=== PATIENT | female | born 1970 | race Caucasian/White ===

== ENCOUNTER 2020-03-10 08:02 | Outpatient (CLI) | payer BC, SELFPAY ==
--- NOTE | ~2020-03-10 | MM_ITS ---
EXAMINATION: MM screening idalmis BI w kye HISTORY: Screening mammogram, family history of breast cancer in her mother. TECHNIQUE: Craniocaudal and mediolateral oblique 3-D tomosynthesis images were obtained and synthetic 2-D images were generated. CAD analysis was submitted and interpreted. COMPARISON: 03/06/2019, 03/03/2018, 03/01/2017 BREAST PARENCHYMAL COMPOSITION: There are scattered areas of fibroglandular density. FINDINGS: Scattered benign-appearing calcifications are present. There is no evidence of suspicious m ass, calcification, or architectural distortion to suggest malignancy in either breast. There has bee n no suspicious interval change. IMPRESSION: 1. No mammographic evidence of malignancy. 2. Recommend routine screening mammography in one year. BI-RADS Category 2: Benign finding(s). Reviewed, dictated and finalized at location A.
== END 2020-03-10 08:03 | disposition home or self-care (01) ==
PROVIDERS: PCP Internal Medicine; Visit Provider Internal Medicine
DX: Z12.31 Encounter for screening mammogram for malignant neoplasm of breast (principal)
CPT/HCPCS: 77063; 77067

== ENCOUNTER 2021-03-17 08:22 | Outpatient (CLI) | payer BC, SELFPAY ==
--- NOTE | ~2021-03-17 | MM_ITS ---
EXAMINATION: MM screening idalmis BI w kye HISTORY: Screening mammogram, family history of breast cancer in her mother. TECHNIQUE: Craniocaudal and mediolateral oblique 3-D tomosynthesis images were obtained and synthetic 2-D images were generated. CAD analysis was submitted and interpreted. COMPARISON: 03/10/2020, 03/06/2019, 03/03/2018 BREAST PARENCHYMAL COMPOSITION: There are scattered areas of fibroglandular density. FINDINGS: There is no evidence of suspicious mass, calcification, or architectural distortion to sugg est malignancy in either breast. There has been no suspicious interval change. IMPRESSION: 1. No mammographic evidence of malignancy. 2. Recommend routine screening mammography in one year. BI-RADS Category 1: Negative Reviewed, dictated and finalized at location A.
== END 2021-03-17 08:23 | disposition home or self-care (01) ==
PROVIDERS: PCP Internal Medicine
DX: Z12.31 Encounter for screening mammogram for malignant neoplasm of breast (principal)
CPT/HCPCS: 77063; 77067

== ENCOUNTER 2021-11-13 10:43 | Outpatient (CLI) | payer BC, SELFPAY ==
--- NOTE | ~2021-11-13 | CT_ITS ---
EXAMINATION: CT abdomen pelvis w con EXAM DATE: 11/13/2021 11:30 INDICATION: Acute diffuse abdominal pain for 3 weeks, lack of appetite. TECHNIQUE: Spiral CT of the abdomen and pelvis was performed following intravenous injection of 100 m L Omnipaque 350. Axial, coronal and sagittal images of the abdomen and pelvis were reviewed. The do se-length product (DLP) for this examination was 245.57 mGy-cm. The exposure was tailored according to patient size (auto mA exposure control), and iterative reconstruction (ASIR) was used as additiona l dose reduction technique. Comparison is made to prior examination from 05/31/2017. FINDINGS: The liver, spleen, adrenal glands and pancreas are unremarkable. Gallbladder is unremarkab le. No biliary obstruction. Portal and splenic veins are patent. Kidneys enhance symmetrically. T here is no hydronephrosis. The uterus is unremarkable. The bladder is unremarkable. There is no retroperitoneal or pelvic lymphadenopathy. Small umbilical fat-containing hernia. There are no findings to suggest appendicitis. There is a rectosigmoid anastomosis site. The stomach and small bowel are unremarkable. There is expected amount of colonic stool. No free intraperitone al gas. The heart is normal in size. There are no pericardial or pleural effusions. The lung base s are unremarkable. There are no osteoblastic or osteolytic lesions identified. IMPRESSION: 1. No acute intra-abdominal findings. Reviewed, dictated and finalized at location A. ING ALLEY REFINISHER
[2021-11-13 10:55] LABS: Basophils Absolute Auto 0.05 K/mm3 (0.00-0.10); Basophils Percent Auto 0.7 % (0.0-1.0); Eosinophils Absolute Auto 0.05 K/mm3 (0.02-0.50); Eosinophils Percent Auto 0.7 % (1.0-6.0); Hematocrit 42.4 % (35.0-49.0); Hemoglobin 14.3 g/dL (12.0-15.0); Immature Granulocyte Absolute 0.02 K/mm3 (0.00-0.00); Immature Granulocyte Percent A 0.3 % (0.0-0.0); Lymphocytes Absolute Auto 1.43 K/mm3 (1.10-4.50); Lymphocytes Percent Auto 20.8 % (18.0-42.0); Mean Corpuscular HGB Conc 33.7 g/dL (32.0-36.0); Mean Corpuscular Hemoglobin 31.4 pg (27.0-31.0); Mean Platelet Volume 9.8 fl (9.2-11.8); Monocytes Absolute Auto 0.33 K/mm3 (0.10-0.90); Monocytes Percent Auto 4.8 % (2.0-11.0); Neutrophils Percent Auto 72.7 % (50.0-70.0); Platelet Count Result 226 K/mm3 (150-420); Red Blood Count 4.56 M/mm3 (4.20-5.40); Red Cell Distribution Width 12.8 % (11.6-14.4); White Blood Count 6.9 K/mm3 (4.8-10.8)
[2021-11-13 11:01] LABS: Add Urine Microscopic? YES; Appearance Urine Clear (Clear); Bilirubin Urine Negative (Negative); Blood Urine 3+ (Negative); Color Urine Yellow (Yellow); Glucose Urine UA Negative (Negative); Ketones Urine 1+ (Negative); Leukocyte Esterase Ur Trace (Negative); Nitrate Urine Negative (Negative); Protein Urine Negative (Negative); Specific Grav Ur <= 1.005 (1.010-1.020); Urobilinogen Urine 0.2 mg/dL (0.2-1.0)
[2021-11-13 11:08] LABS: Bacteria Urine Trace /hpf; Squamous Epithelial Cell Urine Few /hpf (Few); WBC Urine 0-3 /hpf (0-3)
[2021-11-13 11:12] LABS: Alanine Aminotransferase 20 U/L (14-59); Albumin Level 4.1 g/dL (3.4-5.0); Alkaline Phosphatase 56 U/L (46-116); Anion Gap 11 mmol/L (8-16); Aspartate Amino Transferase 14 U/L (15-37); Bilirubin,Total 0.5 mg/dL (0.00-1.00); Blood Urea Nitrogen 12 mg/dL (7-18); Calcium 9.7 mg/dL (8.5-10.1); Carbon Dioxide 27 mmol/L (21-32); Chloride 101 mmol/L (98-108); Estimated Glomerular Filt Rate > 60; Glucose 102 mg/dL (70-99); Osmolality Calculated 287 mOsm/kg (285-295); Sodium 139 mmol/L (136-145); Total Protein 7.3 g/dL (6.4-8.2)
== END 2021-11-13 10:44 | disposition home or self-care (01) ==
PROVIDERS: PCP Internal Medicine; Visit Provider Internal Medicine
DX: R10.9 Unspecified abdominal pain (principal); R31.9 Hematuria, unspecified
CPT/HCPCS: 36415; 74177; 80053; 81001; 85025; 87086; 87088; Q9967

== ENCOUNTER 2022-03-19 08:17 | Outpatient (CLI) | payer BC, SELFPAY ==
--- NOTE | ~2022-03-19 | MM_ITS ---
EXAMINATION: MM screening idalmis BI w kye HISTORY: Screening mammogram, family history of breast cancer in her mother. TECHNIQUE: Craniocaudal and mediolateral oblique 3-D tomosynthesis images were obtained and synthetic 2-D images were generated. CAD analysis was submitted and interpreted. COMPARISON: 03/17/2021, 03/10/2020, 03/06/2019 BREAST PARENCHYMAL COMPOSITION: There are scattered areas of fibroglandular density. FINDINGS: Scattered benign-appearing calcifications are present. There is no suspicious mass, calcifi cation, or architectural distortion to suggest malignancy in either breast. There has been no suspici ous interval change. IMPRESSION: 1. No mammographic evidence of malignancy. 2. Recommend routine screening mammography in one year. BI-RADS Category 2: Benign finding(s). Reviewed, dictated and finalized at location A.
== END 2022-03-19 08:18 | disposition home or self-care (01) ==
LOC: CHSIMG 08:19
PROVIDERS: PCP Internal Medicine
DX: Z12.31 Encounter for screening mammogram for malignant neoplasm of breast (principal)
CPT/HCPCS: 77063; 77067

== ENCOUNTER 2022-11-25 07:26 | Outpatient (CLI) | payer BC, SELFPAY ==
[2022-11-25 07:58] LABS: Appearance Urine Slightly Cloudy (Clear); Bilirubin Urine Negative (Negative); Blood Urine Negative (Negative); Color Urine Light Yellow (Yellow); Glucose Urine UA Negative (Negative); Hematocrit 39.5 % (35.0-49.0); Hemoglobin 13.5 g/dL (12.0-15.0); Ketones Urine Negative (Negative); Leukocyte Esterase Ur 3+ (Negative); Mean Corpuscular HGB Conc 34.2 g/dL (32.0-36.0); Mean Corpuscular Hemoglobin 31.1 pg (27.0-31.0); Mean Platelet Volume 9.6 fl (9.2-11.8); Nitrate Urine Negative (Negative); Platelet Count Result 238 K/mm3 (150-420); Protein Urine Negative (Negative); Red Blood Count 4.34 M/mm3 (4.20-5.40); Red Cell Distribution Width 12.8 % (11.6-14.4); Urobilinogen Urine 0.2 mg/dL (0.2-1.0); White Blood Count 5.2 K/mm3 (4.8-10.8); pH Urine 7.5 (5.0-8.0)
[2022-11-25 08:12] LABS: Add Urine Microscopic? YES; Bacteria Urine 2+ /hpf; RBC Urine None seen /hpf (0-2); Squamous Epithelial Cell Urine Many /hpf (Few)
[2022-11-25 08:13] LABS: Band Neutrophils Percent 0 % (0-6); Eosinophils Absolute Manual 0.05 K/mm3 (0.02-0.5); Eosinophils Percent Manual 1 % (1-6); Lymphocytes Absolute Manual 2.49 K/mm3 (1.1-4.5); Lymphocytes Percent Manual 48 % (18-44); Monocytes Absolute Manual 0.26 K/mm3 (0.1-0.90); Monocytes Percent Manual 5 % (3-9); Neutrophils Absolute Manual 2.39 K/mm3 (1.7-7.2); Neutrophils Percent Manual 46 % (46-73); Platelet Estimate Adequate (Adequate); Total Cells Counted 100
[2022-11-25 08:24] LABS: Alanine Aminotransferase 22 U/L (14-59); Albumin Level 3.7 g/dL (3.4-5.0); Alkaline Phosphatase 54 U/L (46-116); Anion Gap 6 mmol/L (8-16); Aspartate Amino Transferase 15 U/L (15-37); Bilirubin,Total 0.6 mg/dL (0.00-1.00); Blood Urea Nitrogen 15 mg/dL (7-18); Carbon Dioxide 29 mmol/L (21-32); Chloride 105 mmol/L (98-108); Cholesterol 197 mg/dL (0-200); Estimated Glomerular Filt Rate > 60; Free T4 Free Thyroxine 0.89 ng/dL (0.76-1.46); Glucose 93 mg/dL (70-99); HDL Direct 82 mg/dL (40-60); LDL Cholesterol Calculated 103 mg/dL (<130); Osmolality Calculated 290 mOsm/kg (285-295); Potassium 4.6 mmol/L (3.5-5.1); Sodium 140 mmol/L (136-145); Total Protein 6.8 g/dL (6.4-8.2); Triglycerides 58 mg/dL (0-150)
[2022-11-28 19:32] LABS: Vitamin D 25 Hydroxy 40 ng/mL (30-100)
== END 2022-11-25 07:27 | disposition home or self-care (01) ==
LOC: CHSLAB 07:28
PROVIDERS: PCP Internal Medicine; Visit Provider Internal Medicine
DX: Z00.00 Encounter for general adult medical examination without abnormal findings (principal)
CPT/HCPCS: 36415; 80053; 80061; 81001; 82306; 84439; 84443; 85025; 87077; 87086; 87088

== ENCOUNTER 2025-07-09 16:21 | Outpatient (CLI) | payer OTHER, SELFPAY ==
--- OUTSIDE RECORDS SUMMARY | 2025-01-17 09:00 | XMS_ITS ---
Author Organization [facility] Address [address] [place], [place] [id number] Care Team Providers Care Live Ammunition Inspector Name Role Phone FARMER, YOSEPH Unavailable [phone] Chitra Landry Unavailable Unavailable Allergies No Known Allergies REASON FOR VISIT Plantar fasciitis Medications Medication SIG (Take, Route, Frequency, Duration) Notes Start Date End Date Status nabumetone 500 MG Oral Tablet [Relafen] ORAL nabumetone 500 MG Oral Tablet [Relafen]Original Medicationnabumetone 500 MG Oral Tablet [Relafen] *Reorder from [employer] for eRx and Interaction Alerts* 04/12/2014 Active Social History Social History Additional Details Category Social Info Options Details Migrated Social History Migrated Social History Smoking Status : Never smoked , History of tobacco use : , Alcohol intake : Vital Signs Height 62.00 in 01/17/2025 Weight 140 lbs 01/17/2025 BMI 25.6 kg/m2 01/17/2025 Height-cm 157.48 cm 01/17/2025 Weight-kg 63.5 kg 01/17/2025 Encounters Encounter Location Date Provider Diagnosis [address] [id number] 01/17/2025 YOSEPH FARMER Plantar fascial 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 ; Pain in left foot M79.672 and Left foot pain M79.672 Assessments Encounter Date Diagnosis (ICD Code) Assessment Notes Treatment Notes Treatment Clinical Notes Section Notes 01/17/2025 Plantar fascial fibromatosis (ICD-10 - M72.2) Heel Pain: I discussed anti-inflammato ry treatment options and various means of pronation control with the patient. I educated the patient on icing and stretching, supportive shoegear, and the use of orthotic devices. 01/17/2025 Pain in left foot (ICD-10 - M79.672) Patient was instructed to try an OTC topical pain reliever/anti-i nflammatory such as Voltaren Gel, Aspercreme with Lidocaine, or Biofreeze etc over the affected areas. Spot test on hand or somewhere visible prior to starting to watch for possible rash/allergic reaction 01/17/2025 Left foot pain (ICD-10 - M79.672) The patient was scanned for custom orthotics while held in subtalar joint neutral position Plan Of Treatment Treatment Notes Assessment Notes Plantar fascial fibromatosis Heel Pain: I discussed anti-inflammatory treatment options and various means of pronation control with the patient. I educated the patient on icing and stretching, supportive shoegear, and the use of orthotic devices. Pain in left foot Patient was instruct ed to try an OTC topical pain reliever/anti-inflammatory such as Voltaren Gel, Aspercreme with Lidocaine, or Biofreeze etc over the affected areas. 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 Patient states that she has custom orthotics, but they are about 14 years old. She states that the felt great but might be wearing down now. , MA: [facility] Examination Category Sub-Category Detail Notes Category Not es Constitutional Constitutional The patient is a wake, alert, well developed, well groomed and well nourished. Dermatologic Skin findings: bilateral, Skin is warm, dry, supple with no breaks in the skin. Musculoskeletal Muscle Strength Muscle strength is 5/5 in regards to dorsiflexion, plantarflexion, inversion, and eversion in bilateral lower extremities. Pain on palpation There is no pain on palpation of achilles tendons bilat. Plantar Fascia There is pain on pal pation to the medial band of the left plantar fascia, near its attachment to the calcaneus Neurologic Gross sensation Gross sensation is intact to light touch. Vascular Dorsalis pedis pulse: bilateral, 2/4 Posterior tibial pulse: bilaterally, 2/4 Capillary refill: bilaterally, less th an 3 seconds Progress Notes * MEHRDAD CHEUNGDOB:1970 (54 yo F)Acc No.[id number]:01/17/2025 Progress Notes Patient: MEHRDAD MARTÍNEZ Provider: Claudio FARMER :1970 A ge:54 Y S ex:Female Date:01/17/2025 Address:[address] [place], [place] [address] [address] Subjective: * Chief Complaints: * P lantar fasciitis * HPI: H PI: New Complaint P atient was last seen in our practice over three years ago., Patient complains of an issue to left heel and top of the foot pain. Patient states that she has custom orthotics, but they are about 14 years old. She states that the felt great but might be wearing down now. , MA: [facility]. * ROS: G eneral / Constitutional: Patient denies c hills, fever, weakness. M usculoskeletal: Patient complains of h eel pain. P eripheral Vascular: Patient denies c old extremities, ulceration of feet. ? S kin: Patient denies u lcerations, keloid scar, discoloration.? N eurologic: Patient denies b alance difficulty, Numbness. ? * Medical History: Denies Past Medical History No Medical History Documented Medical History Verified * Surgical History: Denies Past Surgical History. Surgical History verified. * Hospitalization/Major Diagno stic Procedure: Denies Past Hospitalization. Hospitalization Verified. * Family History: F ather: PRN - Father: . M other: PRN - Mother: . S ister: SIB - Sister: . F amily History Verified.. * Social History: M igrated Social History: M igrated Social History: Smoking Status : Never smoked , History of tobacco use : , Alcohol intake :. Social History Verified. * Medications: T akingnabumetone 500 MG Oral Tablet [Relafen] ORAL , Notes to Pharmacist: nabumetone 500 MG Oral Tablet [Relafen]Original Medicationnabumetone 500 MG Oral Tablet [Relafen] *[facility] and Interaction Alert[facility]*Medication List reviewed and reconciled with the patientTaking nabumetone 500 MG Oral Tablet [Relafen] ORAL , Notes to Pharmacist: nabumetone 500 MG Oral Tablet [Relafen]Original Medicationnabumetone 500 MG Oral Tablet [Relafen] *[facility] and Interaction Alerts*Medication List reviewed and reconciled with the patient * Allergies: N .K.D.A.yesAllergies Verified. Objective: * Vitals: W t:140lbs, Wt-k.5 kg, Ht: 62.00 in, Ht-cm: 157.48 cm, BMI:25.6Index, Body Surface Area: 1.67. * Examination: C onstitutional: Constitutional T he patient is awake, alert, well developed, well groomed and well nourished.. D ermatologic: Skin findings: b ilateral, Skin is warm, dry, supple with no breaks in the skin.. M usculoskeletal: Muscle Strength M uscle strength is 5/5 in regards to dorsiflexion, plantarflexion, inversion, and eversion in bilateral lower extremities.. Pain on palpation T here is no pain on palpation of achilles tendons bilat.. Plantar Fascia T here is pain on palpation to the m edial band of the left plantar fascia, near its attachment to the calcaneus. N eurologic: Gross sensation G ross sensation is intact to light touch..? V ascular: Dorsalis pedis pulse: b ilateral, 2/4. Posterior tibial pulse: b ilaterally, 2/4. Capillary refill: b ilaterally, less than 3 seconds. ? Assessment: * Assessment: 1. P lantar fascial fibromatosis - M72.2 (Primary) 2 . P ain in left foot - M79.672 3 . L eft foot pain - M79.672 Plan: * Treatment: 2. P ain in left foot Notes: Patient was instructed to try an OTC topical pain reliever/anti-inflammatory such as Voltaren Gel, Aspercreme with Lidocaine, or Biofreeze etc over the affected areas. Spot test on hand or somewhere visible prior to starting to watch for possible rash/allergic reaction 3. L eft foot pain Notes: The patient was scanned for custom orthotics while held in subtalar joint neutral position? * Immunizations: Immunization record has been reviewed and updated. * Procedure Codes: L 3020 FT INSRT REMV MOLD LNGTUDNL SUPP EA, Modifiers: RT , HID1443 FT INSRT REMV MOLD LNGTUDNL SUPP EA, Modifiers: LT , GA * Follow Up: 3 Weeks (Reason: orthotic orange picker) Billing Information: * Visit Code: 45801 Office Visit, Est Pt., Level 3. * Procedure Codes: L3020 FT INSRT REMV MOLD LNGTUDNL SUPP EA. Modifiers: RT, GA L3020 FT INSRT REMV MOLD LNGTUDNL SUPP EA. Modifiers: LT, GA * Electronic signature of WILLIAMS FARMER DPM on 07/09/2025 at 04:57 PM MILK INSPECTOR Sign off status: Pending * Provider: Claudio FARMER Date: 0 01/17/2025 Generated for Randy valenzuela/Mauro/Zuri on: 1 09/08/2024 04:57 PM MILK INSPECTOR
--- OUTSIDE RECORDS SUMMARY | 2025-02-28 03:20 | XMS_ITS ---
Author Organization [facility] Address [address] [place], [place] [id number] Care Team Providers Care Paint Technician Name Role Phone MARLENY YOSEPH Unavailable [phone] Chitra Landry Unavailable Unavailable REASON FOR VISIT *Foot Pain Medications Medication SIG (Take, Route, Frequency, Duration) Notes Start Date End Date Status nabumetone 500 MG Oral Tablet [Relafen] ORAL nabumetone 500 MG Oral Tablet [Relafen]Original Medicationnabumetone 500 MG Oral Tablet [Relafen] *Reorder from [employer] for eRx and Interaction Alerts* 04/12/2014 Active Social History Social History Additional Details Category Social Info Options Details Migrated Social History Migrated Social History Smoking Status : Never smoked , History of tobacco use : , Alcohol intake : Vital Signs Height 62.00 in 02/28/2025 Weight 140 lbs 02/28/2025 BMI 25.6 kg/m2 02/28/2025 Height-cm 157.48 cm 02/28/2025 Weight-kg 63.5 kg 02/28/2025 Encounters Encounter Location Date Provider Diagnosis [facility] [address] [place], [place] [id number] 02/28/2025 YOSEPH FARMER Plantar fasciitis M72.2 ; Pain in right foot M79.671 and Left foot pain M79.672 Assessments Encounter Date Diagnosis (ICD Code) Assessment Notes Treatment Notes Treatment Clinical Notes Section Notes 02/28/2025 Plantar fasciitis (ICD-10 - M72.2) 02/28/2025 Pain in right foot (ICD-10 - M79.671) 02/28/2025 Left foot pain (ICD-10 - M79.672) Plan Of Treatment No Information History and Physical Notes * HPI (History of Present Illness) Category Sub-Category Detail Notes Category Not es HPI Follow Up Visit 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 Patient states that there have been no changes or new issues. 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 Patient states that there have been no changes or new issues. , MA: rex. * Family History: F ather: PRN - [...] 500 MG Oral Tablet [Relafen] *Reorder from [employer] for eRx and Interaction Alerts*Medication List reviewed and reconciled with the patientTaking nabumetone 500 MG Oral Tablet [Relafen] ORAL , Notes to Pharmacist: nabumetone 500 MG Oral Tablet [Relafen]Original Medicationnabumetone 500 MG Oral Tablet [Relafen] *Reorder from [employer] for eRx and Interaction Alerts*Medication List reviewed and reconciled with the patient Objective: * Vitals: W t:140lbs, Wt-k.5 kg, Ht: 62.00 in, Ht-cm: 157.48 cm, BMI:25.6Index, Body Surface Area: 1.67. Assessment: * Assessment: 1. P lantar fasciitis - M72.2 (Primary) 2 . P ain in right foot - M79.671? 3. L eft foot pain - M79.672 Plan: * Immunizations: Immunization record has been reviewed and updated. Billing Information: * Visit Code: 53381 Office Visit, Est Pt., Level 3. * Procedure Codes: * Electronic signature of WILLIAMS FARMER DPM on 07/09/2025 at 04:56 PM SOCIAL SERVICES ANALYST Sign off status: Pending * Provider: Claudio FARMER Date: 0 02/28/2025 Generated for Randy valenzuela/Mauro/Zuri on: 09/08/2024 04:56 PM SOCIAL SERVICES ANALYST
--- NOTE | ~2025-07-09 | CT_ITS ---
EXAMINATION: CT abdomen pelvis w con DATE: 07/09/2025 17:16 INDICATION: Diverticulitis. Blood in stool. Abdomen pain. TECHNIQUE: Computed tomography (CT) of the abdomen and pelvis was performed with 100 cc Omnipaque 350 intravenous contrast. The dose-length product was 414.43 mGy-cm. Automated exposure control and iterative reconstruction technique were employed. COMPARISON: CT dated 11/13/2021 FINDINGS: Lung bases unremarkable. Heart size normal. No significant pleural or pericardial effusion. Small fat-containing umbilical hernia. Fatty infiltration of the liver. Small subcentimeter hypodensities of the liver, most likely benign. The spleen, pancreas, adrenal glands and kidneys are unremarkable. No hydronephrosis. Gallbladder is present. There is a fat-containing infraumbilical hernia. There is an anastomosis of the rectosigmoid junction. Small amount of free fluid in the pelvis, likely physiologic. Mild peritoneal stranding in the left lower abdomen, nonspecific. IMPRESSION: 1. Umbilical and infraumbilical ventral hernias containing fat. 2: Mild nonspecific peritoneal stranding left lower abdomen, nonspecific. No findings to suggest diverticulitis. Reviewed, dictated and finalized at location O. OR FINANCIAL REPORTING ANALYST IMPRESSION: 1. Umbilical and infraumbilical ventral hernias containing fat. 2: Mild nonspecific peritoneal stranding left lower abdomen, nonspecific. No fi ndings to suggest diverticulitis.
--- OUTSIDE RECORDS SUMMARY | 2025-07-09 16:56 | XMS_ITS | Encounter Summary ---
Author Organization [facility] Address [address] [place] [address] Phone Care Team Providers Care Larry Car Operator Name Role Phone Chitra Landry MD Primary Care Provider + [phone] Encounter Details Date Type Department Care Team (Latest Contact Info) Description 03/10/2020 Orders Only [facility] Scanning, Provider Social History Tobacco Use Types Packs/Day Years Used Date Smoking Tobacco: Never Assessed Comments No Sex and Gender Information Value Date Recorded Sex Assigned at Not on file Legal 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 Gender Identity Not on file Sexual Orientation Not on file documented as of this encounter Plan of Treatment Not on file documented as of this encounter Procedures Procedure Name Priority Date/Time Associated Diagnosis Comments SCAN - RADIOLOGY/IMAGING 03/10/2020 documented in this encounter Results * SCAN - RADIOLOGY/IMAGING (03/10/2020) Anatomical Region Laterality Modality Other us Provider Scanning Final Result documented in this encounter Visit Diagnoses Not on filedocumented in this encounter Care Teams Larry Car Operator Relationship Specialty Start Date End Date Chitra Landry MD [address] [place] [address] PCP - General Internal Medicine 06/18/19 documented as of this encounter
--- OUTSIDE RECORDS SUMMARY | 2025-07-09 16:56 | XMS_ITS | Encounter Summary ---
Author Organization [facility] Address [address] [place] [address] Phone Care Team Providers Care Assembler Flexible Leads Name Role Phone Chitra Landry MD Primary Care Provider + [phone] Encounter Details Date Type Department Care Team (Late st Contact Info) Description 06/10/2025 Results Follow-Up [facility] Medicine Oncology [address] [place] [address] EloyKelly barrios MD [address] [place], [place] [id number] Screening Mammogram Bilateral W Berto Social History Tobacco Use Types Packs/Day Years Used Date Smoking Tobacco: Never AUDIT-C Answer Date Recorded Q1: How often do you have a drink containing alc ohol? 2-3 times a week 02/24/2021 Q2: How many drinks containi ng alcohol do you have on a typical day when you are drinking? 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
--- OUTSIDE RECORDS SUMMARY | 2025-07-09 16:57 | XMS_ITS | Encounter Summary ---
Author Organization 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 Gender Identity Not on file Sexual Orientation Not on file documented as of this encounter Plan of Treatment Not on file documented as of this encounter Procedures Procedure Name Priority Date/Time Associated Diagnosis Comments SCAN - RADIOLOGY/IMAGING 03/17/2021 documented in this encounter Results * SCAN - RADIOLOGY/IMAGING (03/17/2021) Anatomical Region Laterality Modality Other us Provider Scanning Final Result documented in this encounter Visit Diagnoses Not on filedocumented in this encounter Care Teams Diesel Trailer Mechanic Relationship Specialty Start Date End Date Chitra Landry MD [address] [place] [address] PCP - General Internal Medicine 06/18/19 documented as of this encounter
--- OUTSIDE RECORDS SUMMARY | 2025-07-09 16:57 | XMS_ITS | Clinical Summary ---
Author Organization [facility] Address [address] [place] [address] Care Team Providers Care Outreach Worker Name Role Phone Chitra Landry MD Primary Care Provider [phone] Allergies Active Allergy Reactions Criticality Noted Date Comments Metronidazole Nausea & Vomiting Low 02/09/2016 Medications zolpidem (AMBIEN) 10 mg tablet 12/08/2023 Active Active Problems Problem Noted Date Diagnosed Date At high risk for breast cancer 01/09/2025 Lung consolidation 12/28/2023 Breast cancer screening, high risk patient 12/15 Family history of breast cancer 09/16/2021 Encounter for screening mammogram for breast can cer 09/16/2021 Personal history of colonic polyps 12/05/2020 Overview (12/05/2020): Added automatically from request for surgery [id number] Resolved Problems Problem Noted Date Diagnosed Date Resolved Date Diverticulitis 12/16/2015 08/26/2020 Encounters Date Type Department Care Team Description 06/10/2025 4:16 PM CDT - 06/10/2025 11:59 PM CDT Hospital Encounter [facility] Medical Office Bldg 1 Breast [facility] [address] [place] [address] Screening mammogram, encounter for Discharge Disposition: Discharge to home or self care 06/10/2025 Results Follow-Up [facility] Oncology [address] [place] [address] EloyKelly MD Screening Mammogram Bilateral W Berto from Last 3 Months Immunizations Immunization Administration Dates Next Due Moderna SARS-CoV-2 Monovalen t Vaccination (12+ YRS) 08/14/2021,11/06/2020,09/20/2020 Surgical History Surgery Date Site/Laterality Comments SIGMOIDECTOMY 09/05/2016 - 09/04/2017 diverticulitis Family History Medical History Relation Name Comments Brain cancer Maternal Grandmother Leukemia Maternal Grandmother Breast cancer Mother contralateral cancer at 71, BRIP1 VUS breast cancer Mother's Sister LCIS Relation Name Status Comments Father Alive Maternal Grandmother Mother Alive Mother's Sister Social History Tobacco Use Types Packs/Day Years [...] on file Legal 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 Gender Identity Not on file Sexual Orientation Not on file Obstetrics History Para Term AB IAB SAB Ectopic Multiple Livin g Live Births 2 2 2 Date Outcome GA Total Labor Labor/2nd/3rd Weight Sex Type Anes PTL Kelin A1 A5 Name Clin Term Term Last Filed Vital Signs Vital Sign Reading Time Taken Comments Blood Pressure 137/79 01/09/2025 9:37 AM CDT Pulse 55 01/09/2025 9:37 AM CDT Temperature 36.7 C (98 F) 01/09/2025 9:37 AM CDT Respiratory Rate 16 01/09/2025 9:37 AM CDT Oxygen Saturation 98% 01/09/2025 9:37 AM CDT Inhaled Oxygen Concentration - - Weight 77.6 kg (171 lb 1.2 oz) 06/10/2025 4:26 P M CDT Height 158 cm (5' 2.21) 06/10/2025 4:26 PM CDT Body Mass Index 31.08 06/10/2025 4:26 PM CDT Plan of Treatment Health Maintenance Due Date Last Done Comments Cervical Cancer Screening 1972 Depression Screening 1972 Hepatitis C Screening 1972 DTaP/Tdap/Td Vaccine (1 - Tdap) 1983 Hepatitis B Screening 1990 Regular Well Visit/Exam 18-64 1990 Zoster Vaccine (1 of 2) 2022 Covid-19 Vaccine (4 - 2024- season) 2025 08/14/2021, 11/06/2020, 09/20/2020 Influenza Vaccine (#1) 2025 Breast Cancer Screening-Mammogram 06/10/2026 06/10/2025, 06/04/2024, 03/24/2023, Additional history exists Colon Cancer Screening-Colonoscopy 02/24/2031 02/24/2021, 12/16/2015 Pneumococcal vaccine <65 Aged Out No longer eligible based on patient's age to complete this topic Procedures Procedure Name Priority Date/Time Associated Diagnosis Comments SCREENING MAMMOGRAM BILATERAL W BERTO Schedule Routine, Read Routine (OP Routine) 06/10/2025 4:26 PM CDT Screening mammogram, encounter for COLONOSCOPY 02/24/2021 10:17 AM CDT from Last 3 Months or Most Recently Relevant to Health Maintenance Results * Screening Mammogram Bilateral W Berto (06/10/2025 4:26 PM CDT) Anatomical Region Laterality Modality Breast Bilateral Mammography Impressions 06/10/2025 4:47 PM CDT Bilateral No evidence of malignancy in either breast. OVERALL BI-RADS FINAL ASSESSMENT: 1 - Negative RECOMMENDATION: Recommend bilateral annual screening mammography. Narrative 06/10/2025 4:47 PM CDT EXAMINATION: Screening Mammogram Bilateral W Berto: 06/10/2025 COMPARISON: Relevant prior studies available at the time of interpretation were reviewed, including the most recent mammogram on: 06/04/2024. TECHNIQUE: Mammography was performed with 2D and 3D digital breast tomosynthesis (DBT) images. CAD was utilized. BREAST PARENCHYMAL COMPOSITION: There are scattered areas of fibroglandular density. FINDINGS: Bilateral There is no suspicious mass, calcification, or architectural distortion in either breast.There are benign calcifications in the left breast. us Self Screening Mammogram IMG MAMMO PROCEDURES Fi nal Result * COLONOSCOPY (02/24/2021 10:17 AM CDT) Anatomical Region Laterality Modality Other Narrative Procedure Note Estefania Hoang MD - 02/24/2021 10:17 AM CDT ENDOSCOPY LAB Patient Name: Enid Carrera Procedure Date: 02/24/2021 10:17 AM Date of : 1970 Admit Type: Outpatient Age: 50 Gender: Female Attending MD: Estefania Hoang M.D. Room: [facility] ENDOSCOPY ROOM 03 Note Status: Finalized Procedure: Colonoscopy Indications: High risk colon cancer surveillance: Personalhistory of colonic polyps, Last colonoscopy: December 2015; history of sigmoidectomy for diverticulitis Providers: Estefania Hoang M.D. Referring MD: Chitra Landry MD Medicines: Monitored Anesthesia Care Complications: No immediate complications. Estimated Blood Loss: Estimated blood loss was minimal. Procedure: Pre-Anesthesia Assessment: - Prior to the procedure, a History and Physicalwas performed, and patient medications, allergies and sensitivities were reviewed. The patient'stolerance of previous anesthesia was reviewed. The benefits, risks and alternatives of theprocedure and sedation were discussed and informed consentwas obtained. All questions were answered. Please referto the signed informed consent document in the medical record. The scope was passed under direct vision.The [id number] was introduced through the anusand advanced to the terminal ileum, with identificationof the appendiceal orifice and IC valve. Thecolonoscopy was performed without difficulty. The patient tolerated the procedure well. The quality of thebowel preparation was evaluated using the BBPS (BostonBowel Preparation Scale) with scores of: Right Colon = 3, Transverse Colon = 3 and Left Colon = 3 (entiremucosa seen well with no residual staining, smallfragments of stool or opaque liquid). The total BBPS score equals 9. Bowel prep was administered using a split dose. The bowel preparation used was SUPREP. Findings: The perianal and digital rectal examinations were normal. There was evidence of a prior functional end-to-end colo-colonic anastomosis in the proximal rectum. This was patent and was characterized by healthy appearing mucosa. The anastomosis wastraversed. A single large-mouthed diverticulum was found adjacent to the anastomosis. The terminal ileum appeared normal. A 2 mm polyp was found in the cecum. The polyp was sessile. The polyp was removed with a cold biopsy forceps. Resection and retrieval were complete. A 4 mm polyp was found in the ascending colon. The polyp was sessile. The polyp was removed with a cold snare. Resection and retrieval were complete. A few diverticula were found in the hepatic flexure and ascendingcolon. Impression: - Patent functional end-to-end colo-colonic anastomosis, characterized by healthy appearingmucosa. - Diverticulosis at the colonic anastomosis. - The examined portion of the ileum was normal. - One 2 mm polyp in the cecum, removed with a cold biopsy forceps. Resected and retrieved. - One 4 mm polyp in the ascending colon, removedwith a cold snare. Resected and retrieved. - Diverticulosis at the hepatic flexure and in the ascending colon. Recommendation: - The patient will be observed post-procedure,until all discharge criteria are met. - Await pathology results. - Repeat colonoscopy in 5 years for surveillance. - Contact Information: During normal business hours - Please call theNurse Coordinator: [phone] After hours, evening, nights, weekends and holidays- Please call the hospital rotary envelope machine operator at and ask for the GI fellow buttonhole tacker. - . Attending Participation: I personally performed the entire procedure. Electronically Signed By: Estefania Hoang M.D. Estefania Hoang M.D. 02/24/2021 10:50:34 AM Number of Addenda: 0 Note Initiated On: 02/24/2021 10:17 AM Estefania Hoang MD ENDOSCOPY PROCEDURES Fin al Result from Last 3 Months or Most Recently Relevant to Health Maintenance Insurance [facility] CHOICE PLUS [employer] [place] [facility] CHOICE PLUS Advance Directives For more information, please contact: [phone] * Full Code (Latest Code Status on File) Date Activated Date Inactivated Comments 02/24/2021 9:23 AM 02/24/2021 3:29 PM Care Teams Outreach Worker Relationship Specialty Start Date End Date Chitra Landry MD [address] [place] [address] PCP - General Internal Medicine 06/18/19
--- OUTSIDE RECORDS SUMMARY | 2025-07-09 16:57 | XMS_ITS | Patient Health Record ---
Author Organization [facility] Address [address] [place], [place] [id number] Care Team Providers Care Double End Tenoner Operator Name Role Phone YOSEPH FARMER Unavailable [phone] Chitra Landry Unavailable Unavailable Allergies No Known Allergies Reason For Referral No Information Medications Medication SIG (Take, Route, Frequency, Duration) Notes Start Date End Date Status nabumetone 500 MG Oral Tablet [Relafen] ORAL nabumetone 500 MG Oral Tablet [Relafen]Original Medicationnabumetone 500 MG Oral Tablet [Relafen] *Reorder from [employer] for eRx and Interaction Alerts* 04/12/2014 Active Immunizations Vaccine Route Administration Date Status Comme nts Influenza (split), 3 yrs and above Unknown 06/10/2015 A dministered Influenza (split), 3 yrs and above Unknown 06/10/2015 A dministered Moderna Covid-19 Vaccine 1st dose Unknown 09/20/2020 Ad ministered Moderna Covid-19 Vaccine 1st dose Unknown 09/20/2020 Ad ministered Moderna Covid-19 Vaccine 1st dose Unknown 11/06/2020 Ad ministered Moderna Covid-19 Vaccine 1st dose Unknown 11/06/2020 Ad ministered Moderna Covid-19 Vaccine 1st dose Unknown 08/14/2021 Ad ministered Moderna Covid-19 Vaccine 1st dose Unknown 08/14/2021 Ad ministered Social History Social History Additional Details Category Social Info Options Details Migrated Social History Migrated Social History Smoking Status : Never smoked , History of tobacco use : , Alcohol intake : Vital Signs Height-cm 157.48 cm 02/28/2025 Weight-kg 63.5 kg 02/28/2025 Height 62.00 in 02/28/2025 Weight 140 lbs 02/28/2025 BMI 25.6 kg/m2 02/28/2025 Encounters Encounter Location Date Provider Diagnosis [facility] [address] [place], [place] [id number] 01/17/2025 YOSEPH FARMER Plantar fascial 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 ; Pain in left foot M79.672 and Left foot pain M79.672 [facility] [address] [place], [place] [id number] 02/28/2025 YOSEPH FARMER Plantar fasciitis M72.2 ; [...] starting to watch for possible rash/allergic reaction 02/28/2025 Pain in right foot (ICD-10 - M79.671) 02/28/2025 Plantar fasciitis (ICD-10 - M72.2) 02/28/2025 Left foot pain (ICD-10 - M79.672) 01/17/2025 Left foot pain (ICD-10 - M79.672) The patient was scanned for custom orthotics while held in subtalar joint neutral position Plan Of Treatment No Information Insurance Providers Payer Name Payer Address Payer Phone Subscriber Number Group Number Insured Name Patient Relationship to Insured Coverage Start Date Coverage End Date [facility] [address] [address] [place] [address] [id number] MEHRDAD CHEUNG Self - patient is the insured
--- OUTSIDE RECORDS SUMMARY | 2025-07-09 16:57 | XMS_ITS | Clinical Summary ---
Author Organization [facility] Address [address], [facility] [address] [place] [address] Phone Care Team Providers Care Disk Recoater Name Role Phone Chitra Landry MD Primary Care Provider [phone] Robin Dwyer MD Unavailable [phone] Allergies Active Allergy Reactions Criticality Noted Date Comments Metronidazole Nausea,Vomiting 02/09/2016 Medications zolpidem (AMBIEN) 5 MG Tablet Take 5 mg by mouth nightly as needed. Active Probiotic Product (PROBIOTIC-10 PO) Take by mouth daily. Active Multiple Vitamins-Minera ls (MULTIPLE VITAMINS/WOMENS PO) Take by mouth daily. Active MAGNESIUM PO Take 75 mg by mouth nightly. Active acetaminophen (TYLENOL) 500 MG Tablet Take 1,000 mg by mouth every 4 hours as needed for Pain. Active Active Problems Problem Noted Date Diagnosed Date Diverticulitis of large intestine 07/11/2017 Perforation of sigmoid colon due to diverticulit is 05/31/2017 Immunizations Immunization Administration Dates Next Due Influenza Vaccine greater than 3 yrs 06/10/2015 Family History Medical History Relation Name Comments No Known Problems Brother Hypertension Father No Known Problems Maternal Grandfather No Known Problems Maternal Grandmother Breast Cancer Mother No Known Problems Other No Known Problems Paternal Grandfather No Known Problems Paternal Grandmother No Known Problems Sister Relation Name Status Comments Brother Father Alive Maternal Grandfather Maternal Grandmother Mother Alive Other Paternal Grandfather Paternal Grandmother Sister Social History Tobacco Use Types Packs/Day Years Used Date Smoking Tobacco: Never Smokeless Tobacco: Never Tobacco Cessation:Counseling Given: Yes Alcohol Use Standard Drinks/Week Comments Yes 0 (1 standard drink = 0.6 oz pur e alcohol) Drinks 1 drink on week ends Comments No Sex and Gender Information Value Date Recorded Sex Assigned at Not on file Legal Sex Female 8:55 AM CDT Gender Identity Not on file Sexual Orientation Not on file 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 on file Not on file Last Filed Vital Signs Vital Sign Reading Time Taken Comments Blood Pressure 110/72 11/11/2017 8:43 AM SOCK DRIER Pulse 62 11/11/2017 8:43 AM SOCK DRIER Temperature 36.8 C (98.3 F) 11/11/2017 8:43 AM SOCK DRIER Respiratory Rate 16 11/11/2017 8:43 AM SOCK DRIER Oxygen Saturation 97% 11/11/2017 8:43 AM SOCK DRIER Inhaled Oxygen Concentration - - Weight 65.3 kg (144 lb) 11/11/2017 8:43 AM SOCK DRIER Height 157.5 cm (5' 2) 11/11/2017 8:43 AM SOCK DRIER Body Mass Index 26.34 11/11/2017 8:43 AM SOCK DRIER Plan of Treatment Health Maintenance Due Date Last Done Comments Hepatitis C Virus (HCV) Screening 1972 TdaP Immunization 1972 Hepatitis B Immunization (1 of 3 - 19+ 3-dose series) 1991 Pap Smear 1993 Cervical Cancer Screening (CCS) 2002 HPV/Cotest 2002 Cologuard 2017 Immunochemical Fecal Occult Blood 2017 Pneumococcal Immunization (50+ years) (1 of 1 - PCV) 2022 Zoster Immunization (1 of 2) 2022 Influenza Immunization (#1) 05/06/202506/06, 06/10/2015, 07/05/2014, Additional history exists SARS-COV-2 Immunization (2024- season) 2025 08/14/2021, 11/06/2020, 10/18/2020, Additional history exists Colonoscopy 12/15/2025 12/16/2015 Colorectal Cancer Screening 12/15/2025 Respiratory Syncytial Virus (RSV) Immunization (Adult) (1 - 1-dose 75+ series) 2047 Human Papillomavirus (HPV) Immunization Aged Out No longer eligible based on patient's age to complete this topic Meningococcal Immunization (ACWY) Aged Out No longer eligible based on patient's age to complete this topic Rotavirus Immunization Aged Out No lo nger eligible based on patient's age to complete this topic Medical Devices Explanted Type Area Document Specialist Device Identifier Shelf Expiration Date Model / Serial / Lot Open End Ureteral Catheter Implanted:Qty: 1 Explanted:Qty: 1 on 07/11/2017 at [facility] Right: Ureter [employer] 03/18/2020 [id number] / [id number] / [id number] Open End Ureteral Catheter Implanted:Qty: 1 Explanted:Qty: 1 on 07/11/2017 at [facility] Left: Ureter 03/18/2020 [id number] / [id number] / [id number] Procedures Procedure Name Priority Date/Time Associated Diagnosis Comments HM COLONOSCOPY Routine 12/16/2015 from Last 3 Months or Most Recently Relevant to Health Maintenance Results * HM COLONOSCOPY (12/16/2015) Chitra Landry MD PROCEDURE/MINOR SURGICAL ORDE JAZMÍN Final Result from Last 3 Months or Most Recently Relevant to Health Maintenance Advance Directives * Full Code (Latest Code Status on File) Date Activated Date Inactivated Comments 06/01/2017 2:02 PM 06/02/2017 6:28 PM CPR-Full Kwadwo atment: FULL ARREST: Attempt Resuscitation/CPR wit intubation and mechanical ventilation. PRE-ARREST: Use entire range of life support measures to stabilize the patient. Care Teams Disk Recoater Relationship Specialty Start Date End Date Chitra Landry MD [address] [place] [address] PCP - General Internal Medicine 02/06/16 Robin Dwyer MD [address] [place] [address] General Surgery 06/10/17
== END 2025-07-09 16:22 | disposition home or self-care (01) ==
PROVIDERS: PCP Internal Medicine; Visit Provider Internal Medicine
DX: R10.32 Left lower quadrant pain (principal); K42.9 Umbilical hernia without obstruction or gangrene; K43.9 Ventral hernia without obstruction or gangrene
CPT/HCPCS: 74177; Q9967